=== PATIENT | female | born 1955 | race Caucasian/White ===

== ENCOUNTER 2018-07-28 19:02 | Inpatient (IN) | payer OTHER ==
[~2018-07-28] VITALS: Ht 170.2 cm; Wt 65.1 kg
[2018-07-28] MEDS ORDERED: ASPIRIN 81 MG TAB PO STA (19:08)
[2018-07-28] MEDS ORDERED: ONDANSETRON 4 MG INJ IV STA (19:08)
[2018-07-28] MEDS ORDERED: SOD CHLORIDE 0.9% 1,000 ML IV STA (19:08)
[2018-07-28] MEDS ORDERED: morphine 2 MG INJ IV STA (19:08)
[2018-07-28] MEDS ORDERED: ONDANSETRON 4 MG INJ IV PRN (21:30)
[2018-07-28] MEDS ORDERED: ACETAMINOPHEN 325 MG TAB PO PRN (21:30)
--- NOTE | 2018-07-28 21:59 | ERD ---
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 The patient indicated that 2 hours prior to arrival she developed a sudden onset of chest pressure. She stated was a pressure-like sensation. She stated the chest pain has been persistent.. She states the pain began to radiate to her left arm. She felt nauseous and had one episode of nonbloody nonbilious emesis. When EMS arrived they indicated the patient had mild diaphoresis. They obtained an EKG tracing that showed a run of PVCs. They administered 162 mg of aspirin and 3 sprays of nitroglycerin with no improvement of the patient's symptoms. She has no history of coronary artery disease. She does not smoke tobacco. She states she is never had cardiac issues in the past. She has no shortness of breath. ROS All systems reviewed and are negative except as per history of present illness. Allergies Allergies: Coded Allergies: No Known Drug Allergies (Verified Allergy, Unknown, 07/28/18) PMhx/Soc Medical and Surgical Hx: pt denies Medical Hx, pt denies Surgical Hx History of Surgery: No Hx Neurological Disorder: No Hx Respiratory Disorders: No Hx Cardiac Disorders: No Hx Psychiatric Problems: No Hx Miscellaneous Medical Probl: Yes (HTN ON ANF FOR A MONTH NO MEDS. PRESCRIPTION YET) Hx Alcohol Use: No Hx Substance Use: No Hx Tobacco Use: No Smoking Status: Never smoker Physical Exam Vitals Vital Signs Date Temp Pulse Resp B/P (MAP) Pulse Ox O2 O2 Flow FiO2 Time Delivery Rate 07/28/18 Nasal 19:14 Cannula 07/28/18 98.0 78 19 124/81 100 Room Air 19:07 (95) 07/28/18 98.0 80 19 125/80 100 19:07 (95) Physical Exam Constitutional:Well-developed. Well-nourished. HEENT:Normocephalic. Atraumatic.Pupils were equal round reactive to light. Moist mucous membranes.No tonsillar exudates. Neck: No nuchal rigidity. No lymphadenopathy. No posterior cervical spine tenderness or step-offs. Respiratory: Not using accessory muscles of respiration.Lungs were clear to auscultation bilaterally. No rhonchi. No rales. No wheezing. Cardiovascular: Regular rate regular rhythm.No murmurs. No rubs were appreciated.S1, S2 normal. Distal pulses are palpable 2+ bilaterally. GI: Abdomen was soft. Nontender. Non Distended. No pulsatile abdominal masses or bruits. No rebound. No guarding. Bowel sounds were present and normal. Muscle skeletal: Full range of motion of both the upper and lower extremities bilaterally.Normal muscle tone.No assymetrical calf tenderness or swelling. Skin: No petechia, no purpura. No lesions on the palms or the soles of the feet. No maculopapular rash. NEURO: Patient was alert, awake, orientated x3.No facial droop. Gait observed and normal with no ataxia.Speech had regular rate and rhythm. No focal neurologi jad deficits. Result Diagram: 07/28/18191507/28/181915 Results 24 hrs Laboratory Tests Test 07/28/18 19:16 White Blood Count 8.3 10^3/ul Red Blood Count 4.19 10^6/ul Hemoglobin 12.1 g/dl Hematocrit 36.6 % Mean Corpuscular Volume 87.4 fl Mean Corpuscular Hemoglobin 28.9 pg Mean Corpuscular Hemoglobin Concent 33.1 g/dl Red Cell Distribution Width 13.0 % Platelet Count 377 10^3/UL Mean Platelet Volume 9.8 fl Immature Granulocytes % 0.200 % Neutrophils % 55.2 % Lymphocytes % 37.8 % Monocytes % 5.7 % Eosinophils % 0.6 % Basophils % 0.5 % Nucleated Red Blood Cells % 0.0 /100WBC Immature Granulocytes # 0.020 10^3/ul Neutrophils # 4.6 10^3/ul Lymphocytes # 3.1 10^3/ul Monocytes # 0.5 10^3/ul Eosinophils # 0.1 10^3/ul Basophils # 0.0 10^3/ul Nucleated Red Blood Cells # 0.0 10^3/ul Prothrombin Time 11.7 Sec Prothrombin Time Ratio 0.9 INR International Normalized Ratio 0.85 Activated Partial Thromboplast Time 26.4 Sec Sodium Level 143 mmol/L Potassium Level 3.8 mmol/L Chloride Level 104 mmol/L Carbon Dioxide Level 30 mmol/L Anion Gap 9 Blood Urea Nitrogen 17 mg/dl Creatinine 0.62 mg/dl Est Glomerular Filtrat Rate mL/min > 60 mL/min Glucose Level 120 mg/dl Calcium Level 9.4 mg/dl Total Bilirubin 0.4 mg/dl Direct Bilirubin 0.00 mg/dl Indirect Bilirubin 0.4 mg/dl Aspartate Amino Transf (AST/SGOT) 273 IU/L Alanine Aminotransferase (ALT/SGPT) 150 IU/L Alkaline Phosphatase 145 IU/L Creatine Kinase 41 IU/L Creatine Kinase Index 0.7 Creatinine Kinase MB (Mass) 0.29 ng/ml Troponin I < 0.012 ng/ml B-Type Natriuretic Peptide 103 PG/ML Total Protein 7.9 g/dl Albumin 4.4 g/dl Globulin 3.50 g/dl Albumin/Globulin Ratio 1.25 Lipase 198 U/L Current Medications Medications Dose Sig/Marisol Start Time Status Last (Trade) Ordered Route PRN Stop Time Admin Dose Reason Admin Sodium 1,000 ml @ Q1H STAT 07/28/18 DC 07/28/18 Chloride 1,000 mls/hr IV 19:08 07/28/18 19:29 20:07 Aspirin 162 mg ONCE STAT 07/28/18 DC 07/28/18 (Aspirin) PO 19:08 07/28/18 19:36 19:11 Morphine 2 mg ONCE STAT 07/28/18 DC Sulfate IV 19:08 07/28/18 (morphine) 19:11 Ondansetron 4 mg ONCE STAT 07/28/18 DC HCl (Zofran IV 19:08 07/28/18 Inj) 19:11 Ondansetron 4 mg ER BRIDGE 07/28/18 HCl (Zofran PRN IV 21:30 07/29/18 Inj) NAUSEA/VOMITI 21:29 NG 650 mg ER BRIDGE 07/28/18 Acetaminophen PRN PO 21:30 07/29/18 (Tylenol .MILD PAIN 21:29 Tab) 1-3 OR TEMP Procedures/MDM The patient presented to the emergency department with chest pain. My clinical evaluation and workup was to distinguish minor causes of chest pain from acute life threatening conditions such as myocardial infarction, pulmonary embolism, aortic dissection, esophageal rupture, cardiac tamponade. The patient was placed on a monitor technician and continuous pulse oximetry. IV access established by nursing staff. The patient received 162 mg of aspirin in the emergency department was also given intravenous morphine and Zofran which im proved the patient's chest discomfort. The patient had no left leg abnormalities other than transaminitis. The patient had no leukocytosis. The patient's troponin was within normal limits. Chest radiograph showed no pneumonia or pneumothorax. No widened mediastinum. 12 Lead EKG tracing ordered and reviewed by myself showed: Normal sinus rhythm of 76 bpm and no arrhythmia. MA interval normal. QRS duration normal. No ST segment elevation No ST segment depression. No changes consistent with acute ischemia. I did review the EKG strip taken by EMS. There was questionable run of V. tach versus torsades. Therefore I did feel the patient required admission to the hospital for serial twelve-lead EKG tracings and cardiac enzymes as this could likely have been artifact given that she had to repeat EKGs in the ER which were found to be normal sinus rhythm. She will be admitted to the hospitalist Dr. Melendez. She will be admitted for observation. Departure Diagnosis: Primary Impression: Chest pain Chest pain type: unspecified Qualified Codes: R07.9 - Chest pain, unspecified Condition: NIDIA Alonso MD Jul 28, 2018 21:59
[2018-07-29] VITALS (12 sets, daily range): BP systolic 115–150; BP diastolic 59–80; PULSE 2–69; RESP 18–20; Ht 170.2 cm; Wt 65.1 kg
[2018-07-29] MEDS ORDERED: NACL 0.9% 3 ML SYG IV SCH
[2018-07-29] MEDS ORDERED: ACETAMINOPHEN 325 MG TAB PO PRN
[2018-07-29] MEDS ORDERED: ONDANSETRON 4 MG INJ IV PRN
--- NOTE | 2018-07-29 00:11 | HP ---
Date/Time of Note Date/Time of Note DATE: 07/29/18 TIME: 00:04 Assessment/Plan VTE Prophylaxis SCD applied (from Nsg): Yes Pharmacological prophylaxis: NA/contraindicated Pharm contraindication: low risk/ambulating Lines/Catheters IV Catheter Type (from Nrsg): Saline Lock Assessment/Plan Assessment/Plan 62 yo woman no PMH presents with chest pain, initial EKG concerning for Torsades #Abnormal EKG #Chest pain - Very unlikely ACS; as it did not respond to nitro and trops are negative - EKG in the field looks like Torsades de Pont - However lytes are all normal including magnesium - Admit to tele for 24 hours monitoring. - Stress test likely not indicated. DVT: SCDs GI: None Result Diagram: 07/28/18191507/28/181915 HPI/ROS Admit Date/Time Admit Date/Time 29 July 2018 Hx of Present Illness Ms. Cassidy is a 62 yo woman without major PMH who presents with chest pain. She was in her usual state of health until about 16:00 the day of admission, when she developed chest discomfort. Her daughter took her blood pressure and it was elevated to 170/120. Progressively worsening; at 18:00 she complained of pressure-like chest discomfort at lower sternum upper epigastrium. She then had an episode of nonbloody vomiting. EMS was called. Initial EKG in the field is highly concerning for Torsades versus V fib. She got sublingual nitro x3, and aspirin without relief of pain. Her daughter reports the patient has had similar episodes of chest discomfort and hypertension in April 2018 and October 2017 but she did not go to the em ergency room. In the ED she was afebrile, vitals stable. Labs unremarkable. CXR unremarkable. Trop negative. ROS She denies fever, chills, night sweats, anorexia, weight loss, headache, dizziness, vertigo, dysphagia, palpitations, cough, dyspnea, diarrhea, constipation, dysuria, hematuria, flank pain, melena PMH/Family/Social Past Medical History None Medications Current Medications Ondansetron HCl (Zofran Inj) 4 mg ER BRIDGE PRN IV NAUSEA/VOMITING; Start 07/28/18 at 21:30; Stop 07/29/18 at 21:29 Acetaminophen (Tylenol Tab) 650 mg ER BRIDGE PRN PO .MILD PAIN 1-3 OR TEMP; Start 07/28/18 at 21:30; Stop 07/29/18 at 21:29 Coded Allergies: No Known Drug Allergies (Verified Allergy, Unknown, 07/28/18) Past Surgical History Past Surgical Hx: no surgical history Social History Alcohol Use: none Smoking Status: Never smoker Drug Use: none Exam/Review of Systems Vital Signs Vitals Vital Signs Date Temp Pulse Resp B/P (MAP) Pulse Ox O2 O2 Flow FiO2 Time Delivery Rate 07/28/18 66 16 125/77 99 Room Air 22:02 (93) 07/28/18 98.0 19:07 Exam Exam Gen: Well appearing woman in [facility] no acute distress Eyes: PERRL, no icterus HEENT: Moist mucous membranes, clear oropharynx Neck:Supple, no lymphadenopathy Card: Regular rate and rhythm, no murmurs Pulm: Clear to auscultation bilaterally, no wheezing Abd: Soft, nontender, nondistended. Normoactive bowel sounds. No hepatosplenomegaly. Ext: No cyanosis/clubbing/edema, good peripheral pulses. Skin: warm, dry, well perfused. DORETHA PAYTON MD Jul 29, 2018 00:11
[2018-07-29] MEDS: PANTOPRAZOLE (EC) 40 MG TAB PO SCH (06:25)
--- NOTE | 2018-07-29 13:41 | RADRPT ---
Echocardiogram Report Patient Name: REX YUNGPatient ID: [id number] : 1955 (62y 10m)Study Date: 07/29/2018 12:13:33 PM Gender: FAccession #: [id number] Tech: Eladio Kent [facility] Location: [id number] Ref.Physician: PITER VALERO Height(Cm): BSA: Weight(Kg): Quality: AdequateOrder Physician: PITER VALERO Account #: Procedures: Echocardiographic Report: Transthoracic echocardiogram with complete 2D, M-Mode, and doppler examination. Indications: Cardiac Arrhythmia, and Chest Pain. Measurements: 2D/M Mode Doppler Measurement Value Normal Range Measurement Value Normal Range LVIDd 2D 3.7 [ 3.8 - 5.2 ] cm AV Peak Power 1.0 [ 100.0 - 170.0 ] cm/sec LVIDs 2D 2.8 [ 2.2 - 3.5 ] cm AV Peak PG 4.0 [ 2.0 - 9.0 ] mmHg LVPWd 2D 0.9 [ 0.6 - 0.9 ] cm LVOT Peak Power 0.8 [ 70.0 - 110.0 ] cm/sec IVSd 2D 1.2 [ 0.6 - 0.9 ] cm LVOT Peak PG 3.0 [ 2.0 - 6.0 ] mmHg AoR Diam 2D 2.7 [ 2.3 - 3.1 ] cm MV E Peak Power 0.8 [ 60.0 - 130.0 ] cm/sec EDV 2D 57.0 [ 46.0 - 106.0 ] ml MV A Peak Power 0.6 [ 100.0 - 120.0 ] cm/sec ESV 2D 30.3 [ 14.0 - 42.0 ] ml MV E/A 1.2 [ 0.8 - 1.5 ] ratio EF 2D 46.8 [ 54.0 - 74.0 ] percent MV Decel Time 232 [ 104 - 258 ] msec LA Dimen 2D 2.9 [ 2.7 - 3.8 ] cm Lat E` Power 0.1 [ 10.0 - 15.0 ] cm/sec Lateral E/E` 7.3 [ 1.0 - 2.0 ] ratio MV E/A 1.2 [ 0.8 - 1.5 ] ratio TR Peak Power 2.0 [ 100.0 - 280.0 ] cm/sec TR Peak PG 16.0 mmHg RVSP 26.0 [ 10.0 - 36.0 ] mmHg RA Pressure 10.0 mmHg Findings: Left Ventricle: Normal left ventricular systolic function. Normal left ventricular cavity size. Mild concentric left ventricular hypertrophy. Ejection fraction is visually estimated at 65 %. Tissue Doppler/Mitral Doppler indices are within normal limits. Right Ventricle: Normal right ventricular size. Normal right ventricular systolic function. Left Atrium: The left atrium is normal in size. Right Atrium: The right atrium is normal in size. Mitral Valve: Normal appearance and function of the mitral valve with trace physiologic regurgitation. Aortic Valve: Normal appearance of the aortic valve. No significant aortic stenosis or insufficiency. Tricuspid Valve: Normal appearance and function of the tricuspid valve with trace physiologic regurgitation. Normal right ventricular systolic pressure. Pulmonic Valve: Normal pulmonic valve appearance. Pericardium: Normal pericardium with no significant pericardial effusion. Aorta: Normal aortic root. IVC: Normal size and normal respiratory collapse consistent with normal right atrial pressure. Conclusions: Normal left ventricular systolic function. Normal left ventricular cavity size. Mild concentric left ventricular hypertrophy. Ejection fraction is visually estimated at 65 %. Tissue Doppler/Mitral Doppler indices are within normal limits. Normal appearance and function of the mitral valve with trace physiologic regurgitation. Normal appearance of the aortic valve. No significant aortic stenosis or insufficiency. Normal appearance and function of the tricuspid valve with trace physiologic regurgitation. Normal right ventricular systolic pressure. Electronically Signed By: Yoav Thomas 2018-07-29 13:41:13 PDT
--- NOTE | 2018-07-29 15:17 | CONS ---
Assessment/Plan Assessment/Plan Hospital Course (Demo Recall) Chest pain: Appears to be atypical as resolved with normal EKG and normal wall motion on the echo transient HTN? resolved now elevated LFT? etiology. work up as per IM ANEMIA: defer to IM ? Arrhythmia torsade per medic report but currently no significant arrhythmia seen on telemetry: Currently appears to be in sinus rhythm with normal QT interval and normal magnesium level rec Patient blood pressure currently remained stable off of any medication. We will continue to monitor. I will order a CT coronary angiogram to rule out significant obstructive coronary artery disease GI work-up as per internal medicine Thank you for his referral. We will continue to follow him with you PAXTON POLANCO MD [facility] Consultation Date/Type/Reason Admit Date/Time 29 July 2018 Date of Consultation: Jul 29, 2018 Type of Consult Cardiology Reason for Consultation CHEST PAIN , possible arrhythmia Requesting Provider: PITER VALERO MD Date/Time of Note DATE: 07/29/18 TIME: 15:10 Hx of Present Illness Interventional cardiology consultation note Chief complaint: High blood pressure Reason for consult: chest pain, possible arrhythmia History of present illness: Thank you for this referral. History was obtained from the patient from discussion with the physician staff review of the old chart This is a pleasant 62-year-old [place] female with no past cardiac history who presents emergency room with complaint. Patient states to me that she came in because her blood pressure was too high. On further questioning she also said that her blood pressure went up she was having some chest discomfort on the left side which is completely resolved now. 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 Patient denies any history of exertional chest pain or pressure pressure. He denies any nausea vomiting abdominal pain but LFTs has been elevated as well Allergies: No known drug allergies Medications At Home none Family history: No reported history of early coronary artery disease Social history: Non-smoker Past medical history: None Review of system: Patient denies all others except for above-mentioned Past Medical History Medications Current Medications Ondansetron HCl (Zofran Inj) 4 mg ER BRIDGE PRN IV NAUSEA/VOMITING; Start 07/28/18 at 21:30; Stop 07/29/18 at 21:29 Acetaminophen (Tylenol Tab) 650 mg ER BRIDGE PRN PO .MILD PAIN 1-3 OR TEMP; Start 07/28/18 at 21:30; Stop 07/29/18 at 21:29 IV Flush (NS 3 ml) 3 ml PER PROTOCOL IV ; Start 07/29/18 at 00:00 Ondansetron HCl (Zofran Inj) 4 mg Q6H PRN IV NAUSEA/VOMITING; Start 07/29/18 at 00:00 Acetaminophen (Tylenol Tab) 650 mg Q6H PRN PO .PAIN 1-3 OR TEMP; Start 07/29/18 at 00:00 Pantoprazole (Protonix Tab) 40 mg DAILY@06 PO Last administered on 07/29/18at 06:25; Admin Dose 40 MG; Start 07/29/18 at 06:00 Allergies: Coded Allergies: No Known Drug Allergies (Verified Allergy, Unknown, 07/28/18) Past Surgical History Past Surgical Hx: no surgical history Social History Alcohol Use: none Smoking Status: Never smoker Drug Use: none Exam/Review of Systems Vital Signs Vitals Vital Signs Date Temp Pulse Resp B/P (MAP) Pulse Ox O2 O2 Flow FiO2 Time Delivery Rate 07/29/18 59 12:01 07/29/18 98.1 19 120/70 93 11:19 (87) 07/29/18 Room Air 02:10 Intake and Output 07/28/18 07/28/18 07/29/18 1515:00 23:00 07:00 IntakeIntake Total 250 ml BalanceBalance 250 ml Exam Exam General: no acute distress HEENT: NC/AT. pupils are equal. round. NECK: NO JVD. no stridor. CV: RRR. systolic murmur; no gallop or rubs. PULM: no wheezing or rhonchi. GI: SOFT, NT, ND, no rebound or guarding Extremity: trace B/L LE edema. no clubbing. neuro: awake and alert, OX3. Psych: calm and pleasant rectal: deferred EKG was personally reviewed which were normal sinus rhythm normal ECG Echocardiogram was personally reviewed which shows: Normal left ventricular systolic function. Normal left ventricular cavity size. Mild concentric left ventricular hypertrophy. Ejection fraction is visually estimated at 65 %. Tissue Doppler/Mitral Doppler indices are within normal limits. Normal appearance and function of the mitral valve with trace physiologic regurgitation. Normal appearance of the aortic valve. No significant aortic stenosis or insufficiency. Normal appearance and function of the tricuspid valve with trace physiologic regurgitation. Normal right ventricular systolic pressure. Labs Result Diagram: 07/29/18 0625 07/29/18 0624 Results 24hrs Laboratory Tests Test 07/28/18 19:16 07/29/18 00:40 07/29/18 06:24 07/29/18 06:25 White Blood Count 8.3 5.9 # Red Blood Count 4.19 L 3.87 L Hemoglobin 12.1 10.9 L Hematocrit 36.6 L 34.7 L Mean Corpuscular Volume 87.4 89.7 Mean Corpuscular 28.9 L 28.2 L Hemoglobin Mean Corpuscular 33.1 31.4 L Hemoglobin Concent Red Cell Distribution 13.0 13.2 Width Platelet Count 377 352 Mean Platelet Volume 9.8 9.7 Immature Granulocytes % 0.200 0.200 Neutrophils % 55.2 36.4 L Lymphocytes % 37.8 53.7 H Monocytes % 5.7 8.0 Eosinophils % 0.6 1.2 Basophils % 0.5 0.5 Nucleated Red Blood 0.0 0.0 Cells % Immature Granulocytes # 0.020 0.010 Neutrophils # 4.6 2.1 Lymphocytes # 3.1 H 3.2 H Monocytes # 0.5 0.5 Eosinophils # 0.1 0.1 Basophils # 0.0 0.0 Nucleated Red Blood 0.0 0.0 Cells # Prothrombin Time 11.7 L Prothrombin Time Ratio 0.9 INR International 0.85 Normalized Ratio Activated 26.4 Partial Thromboplast Time Sodium Level 143 142 Potassium Level 3.8 4.4 Chloride Level 104 109 Carbon Dioxide Level 30 27 Anion Gap 9 6 Blood Urea Nitrogen 17 18 Creatinine 0.62 0.74 Est Glomerular Filtrat > 60 > 60 Rate mL/min Glucose Level 120 95 Calcium Level 9.4 8.8 Phosphorus Level 3.8 3.8 Magnesium Level 2.3 2.3 Total Bilirubin 0.4 0.3 Direct Bilirubin 0.00 0.00 Indirect Bilirubin 0.4 0.3 Aspartate Amino 273 H 202 H Transf (AST/SGOT) Alanine 150 H 247 H Aminotransferase (ALT/SG PT) Alkaline Phosphatase 145 H 118 Creatine Kinase 41 30 28 Creatine Kinase Index 0.7 0.7 0.8 Creatinine Kinase MB 0.29 < 0.22 < 0.22 (Mass) Troponin I < 0.012 < 0.012 < 0.012 B-Type Natriuretic 103 Peptide Total Protein 7.9 6.0 #L Albumin 4.4 3.5 Globulin 3.50 H 2.50 Albumin/Globulin Ratio 1.25 1.40 Lipase 198 Hemoglobin A1c 5.6 Medications Medications Current Medications Ondansetron HCl (Zofran Inj) 4 mg ER BRIDGE PRN IV NAUSEA/VOMITING; Start 07/28/18 at 21:30; Stop 07/29/18 at 21:29 Acetaminophen (Tylenol Tab) 650 mg ER BRIDGE PRN PO .MILD PAIN 1-3 OR TEMP; Start 07/28/18 at 21:30; Stop 07/29/18 at 21:29 IV Flush (NS 3 ml) 3 ml PER PROTOCOL IV ; Start 07/29/18 at 00:00 Ondansetron HCl (Zofran Inj) 4 mg Q6H PRN IV NAUSEA/VOMITING; Start 07/29/18 at 00:00 Acetaminophen (Tylenol Tab) 650 mg Q6H PRN PO .PAIN 1-3 OR TEMP; Start 07/29/18 at 00:00 Pantoprazole (Protonix Tab) 40 mg DAILY@06 PO Last administered on 07/29/18at 06:25; Admin Dose 40 MG; Start 07/29/18 at 06:00 PAXTON POLANCO MD Jul 29, 2018 15:17
--- NOTE | 2018-07-29 15:23 | PN ---
Date/Time of Note Date/Time of Note DATE: 07/29/18 TIME: 15:22 Assessment/Plan VTE Prophylaxis Risk score (from Ns)>0 risk: 2 SCD applied (from Ns): Yes Pharmacological prophylaxis: heparin Lines/Catheters IV Catheter Type (from Nrsg): Saline Lock Urinary Cath still in place: No Assessment/Plan Hospital Course 62 yo female without significant PMH presents with atypical chest pain - Dr Thomas to review abnormal EKG - ACS excluded with troponins. TTE w normal cardiac function Transamintiis: - Unclear etiology. will check US and hepatitis serologies Result Diagram: 07/29/1825 07/29/18 0624 Results 24hrs Laboratory Tests Test 07/28/18 19:16 07/29/18 00:40 07/29/18 06:24 07/29/18 06:25 White Blood Count 8.3 5.9 # Red Blood Count 4.19 L 3.87 L Hemoglobin 12.1 10.9 L Hematocrit 36.6 L 34.7 L Mean Corpuscular Volume 87.4 89.7 Mean Corpuscular 28.9 L 28.2 L Hemoglobin Mean Corpuscular 33.1 31.4 L Hemoglobin Concent Red Cell Distribution 13.0 13.2 Width Platelet Count 377 352 Mean Platelet Volume 9.8 9.7 Immature Granulocytes % 0.200 0.200 Neutrophils % 55.2 36.4 L Lymphocytes % 37.8 53.7 H Monocytes % 5.7 8.0 Eosinophils % 0.6 1.2 Basophils % 0.5 0.5 Nucleated Red Blood 0.0 0.0 Cells % Immature Granulocytes # 0.020 0.010 Neutrophils # 4.6 2.1 Lymphocytes # 3.1 H 3.2 H Monocytes # 0.5 0.5 Eosinophils # 0.1 0.1 Basophils # 0.0 0.0 Nucleated Red Blood 0.0 0.0 Cells # Prothrombin Time 11.7 L Prothrombin Time Ratio 0.9 INR International 0.85 Normalized Ratio Activated 26.4 Partial Thromboplast Time Sodium Level 143 142 Potassium Level 3.8 4.4 Chloride Level 104 109 Carbon Dioxide Level 30 27 Anion Gap 9 6 Blood Urea Nitrogen 17 18 Creatinine 0.62 0.74 Est Glomerular Filtrat > 60 > 60 Rate mL/min Glucose Level 120 95 Calcium Level 9.4 8.8 Phosphorus Level 3.8 3.8 Magnesium Level 2.3 2.3 Total Bilirubin 0.4 0.3 Direct Bilirubin 0.00 0.00 Indirect Bilirubin 0.4 0.3 Aspartate Amino 273 H 202 H Transf (AST/SGOT) Alanine 150 H 247 H Aminotransferase (ALT/SG PT) Alkaline Phosphatase 145 H 118 Creatine Kinase 41 30 28 Creatine Kinase Index 0.7 0.7 0.8 Creatinine Kinase MB 0.29 < 0.22 < 0.22 (Mass) Troponin I < 0.012 < 0.012 < 0.012 B-Type Natriuretic 103 Peptide Total Protein 7.9 6.0 #L Albumin 4.4 3.5 Globulin 3.50 H 2.50 Albumin/Globulin Ratio 1.25 1.40 Lipase 198 Hemoglobin A1c 5.6 Subjective 24 Hr Interval Summary Free Text/Dictation Chest symptoms resolved Patient under a lot of stress, feels may be related to chest symptoms no angina Exam/Review of Systems Exam Vitals Vital Signs Date Temp Pulse Resp B/P (MAP) Pulse Ox O2 O2 Flow FiO2 Time Delivery Rate 07/29/18 59 12:01 07/29/18 98.1 19 120/70 93 11:19 (87) 07/29/18 Room Air 02:10 Intake and Output 07/28/18 07/28/18 07/29/18 1515:00 23:00 07:00 IntakeIntake Total 250 ml BalanceBalance 250 ml Constitutional: alert, oriented, well developed Psych: no complaints, nl mood/affect Head: normocephalic, atraumatic Eyes: nl conjunctiva, EOMI, nl lids, nl sclera, PERRL ENMT: nl external ears & nose, nl lips & teeth, nl nasal mucosa & septum Neck: supple, non-tender Respiratory: clear to auscultation, normal air movement Cardiovascular: regular rate and rhythm, nl pulses Gastrointestinal: soft, nl liver, spleen, non-tender Musculoskeletal: nl extremities to inspection, nl gait and stance Extremities: normal pulses Neurological: MILITARY ANALYST II-XII intact, nl mental status, nl speech, nl strength Skin: nl turgor; No rash or lesions Lymph: nl lymph nodes Results Results 24hrs Laboratory Tests Test 07/28/18 19:16 07/29/18 00:40 07/29/18 06:24 07/29/18 06:25 White Blood Count 8.3 5.9 # Red Blood Count 4.19 L 3.87 L Hemoglobin 12.1 10.9 L Hematocrit 36.6 L 34.7 L Mean Corpuscular Volume 87.4 89.7 Mean Corpuscular 28.9 L 28.2 L Hemoglobin Mean Corpuscular 33.1 31.4 L Hemoglobin Concent Red Cell Distribution 13.0 13.2 Width Platelet Count 377 352 Mean Platelet Volume 9.8 9.7 Immature Granulocytes % 0.200 0.200 Neutrophils % 55.2 36.4 L Lymphocytes % 37.8 53.7 H Monocytes % 5.7 8.0 Eosinophils % 0.6 1.2 Basophils % 0.5 0.5 Nucleated Red Blood 0.0 0.0 Cells % Immature Granulocytes # 0.020 0.010 Neutrophils # 4.6 2.1 Lymphocytes # 3.1 H 3.2 H Monocytes # 0.5 0.5 Eosinophils # 0.1 0.1 Basophils # 0.0 0.0 Nucleated Red Blood 0.0 0.0 Cells # Prothrombin Time 11.7 L Prothrombin Time Ratio 0.9 INR International 0.85 Normalized Ratio Activated 26.4 Partial Thromboplast Time Sodium Level 143 142 Potassium Level 3.8 4.4 Chloride Level 104 109 Carbon Dioxide Level 30 27 Anion Gap 9 6 Blood Urea Nitrogen 17 18 Creatinine 0.62 0.74 Est Glomerular Filtrat > 60 > 60 Rate mL/min Glucose Level 120 95 Calcium Level 9.4 8.8 Phosphorus Level 3.8 3.8 Magnesium Level 2.3 2.3 Total Bilirubin 0.4 0.3 Direct Bilirubin 0.00 0.00 Indirect Bilirubin 0.4 0.3 Aspartate Amino 273 H 202 H Transf (AST/SGOT) Alanine 150 H 247 H Aminotransferase (ALT/SG PT) Alkaline Phosphatase 145 H 118 Creatine Kinase 41 30 28 Creatine Kinase Index 0.7 0.7 0.8 Creatinine Kinase MB 0.29 < 0.22 < 0.22 (Mass) Troponin I < 0.012 < 0.012 < 0.012 B-Type Natriuretic 103 Peptide Total Protein 7.9 6.0 #L Albumin 4.4 3.5 Globulin 3.50 H 2.50 Albumin/Globulin Ratio 1.25 1.40 Lipase 198 Hemoglobin A1c 5.6 Medications Medication Current Medications IV Flush (NS 3 ml) 3 ml PER PROTOCOL IV ; Start 07/29/18 at 00:00 Ondansetron HCl (Zofran Inj) 4 mg Q6H PRN IV NAUSEA/VOMITING; Start 07/29/18 at 00:00 Acetaminophen (Tylenol Tab) 650 mg Q6H PRN PO .PAIN 1-3 OR TEMP; Start 07/29/18 at 00:00 Pantoprazole (Protonix Tab) 40 mg DAILY@06 PO Last administered on 07/29/18at 06:25; Admin Dose 40 MG; Start 07/29/18 at 06:00 PITER VALERO MD Jul 29, 2018 15:23
--- NOTE | 2018-07-29 15:42 | QN ---
Documentation Comment As Physician Advisor I have reviewed the chart and have determined that as of today, this patient continues to receive medically necessary care required for the diagnosis and treatment of illness or injury. There has been no unreasonable delay in the rendering of medically necessary services, and this medically necessary care requires a length of stay expected to be greater than two midnights. Additional information gained during the stay now suggests this patient should have been classified as an inpatient at the time of admission, and I will change the status to inpatient to reflect that medical judgment. Besides the notes from the medical providers, the following information was used in this determination: Serious ventricular arrhythmia from paramedics with abnormal EKG. Need for further workup including CT angiogram and possible interventional cardiology procedure. Unexplained transaminitis. Please call me at [phone] with questions. RAUL REAGAN MD Jul 29, 2018 15:42
[2018-07-30] VITALS (8 sets, daily range): BP systolic 122–150; BP diastolic 58–83; PULSE 58–74; RESP 19–20
[2018-07-30] MEDS: PANTOPRAZOLE (EC) 40 MG TAB PO SCH (06:00)
--- NOTE | 2018-07-30 08:30 | CONS ---
Consult Date/Type/Reason Admit Date/Time Jul 29, 2018 at 15:38 Initial Consult Date 07/29/18 Type of Consultation: cv Requesting Provider: PITER VALERO MD Date/Time of Note DATE: 07/30/18 TIME: 08:28 Subjective Cardiology follow-up progress note S: Discussed with staff and telemetry was reviewed. Patient has remained in sinus rhythm with no significant arrhythmia overnight predominantly bradycardic with otherwise no arrhythmias noted. Patient with no chest pain or pressure no palpitation no abdominal pain no nausea vomiting O: General: no acute distress HEENT: NC/AT. pupils are equal. round. NECK: NO JVD. no stridor. CV: RRR. systolic murmur; no gallop or rubs. PULM: no wheezing or rhonchi. GI: SOFT, NT, ND, no rebound or guarding Extremity: trace B/L LE edema. no clubbing. neuro: awake and alert, OX3. Psych: calm and pleasant rectal: deferred EKG was personally reviewed which were normal sinus rhythm normal ECG Echocardiogram was personally reviewed which shows: Normal left ventricular systolic function. Normal left ventricular cavity size. Mild concentric left ventricular hypertrophy. Ejection fraction is visually estimated at 65 %. Tissue Doppler/Mitral Doppler indices are within normal limits. Normal appearance and function of the mitral valve with trace physiologic regurgitation. Normal appearance of the aortic valve. No significant aortic stenosis or insufficiency. Normal appearance and function of the tricuspid valve with trace physiologic regurgitation. Normal right ventricular systolic pressure. Objective Vitals Vital Signs Date Temp Pulse Resp B/P (MAP) Pulse Ox O2 O2 Flow FiO2 Time Delivery Rate 07/30/18 58 08:08 07/30/18 97.8 20 125/73 98 Room Air 07:19 (90) Intake and Output 07/29/18 07/29/18 07/30/18 1515:00 23:00 07:00 IntakeIntake Total 1000 ml 500 ml BalanceBalance 1000 ml 500 ml Results/Medications Result Diagram: 07/30/18 0607/30/18 0622 Results 24 hrs Laboratory Tests Test 07/29/18 16:58 07/30/18 06:22 07/30/18 06:29 Sodium Level 142 142 Potassium Level 4.3 4.1 Chloride Level 108 108 Carbon Dioxide Level 28 27 Anion Gap 6 7 Blood Urea Nitrogen 14 13 Creatinine 0.71 0.71 Est Glomerular Filtrat Rate mL/min > 60 > 60 Glucose Level 93 95 Calcium Level 9.3 9.2 Total Bilirubin 0.5 0.5 Direct Bilirubin 0.00 0.00 Indirect Bilirubin 0.5 0.5 Aspartate Amino Transf (AST/SGOT) 118 H 74 H Alanine Aminotransferase (ALT/SGPT) 210 H 159 H Alkaline Phosphatase 120 113 Total Protein 7.2 # 7.1 Albumin 3.9 3.9 Globulin 3.30 H 3.20 Albumin/Globulin Ratio 1.18 1.21 White Blood Count 5.6 Red Blood Count 4.04 L Hemoglobin 11.6 L Hematocrit 36.2 L Mean Corpuscular Volume 89.6 Mean Corpuscular Hemoglobin 28.7 L Mean Corpuscular Hemoglobin Concent 32.0 Red Cell Distribution Width 13.1 Platelet Count 362 Mean Platelet Volume 9.8 Immature Granulocytes % 0.200 Neutrophils % 37.5 L Lymphocytes % 52.7 H Monocytes % 7.5 Eosinophils % 1.4 Basophils % 0.7 Nucleated Red Blood Cells % 0.0 Immature Granulocytes # 0.010 Neutrophils # 2.1 Lymphocytes # 2.9 Monocytes # 0.4 Eosinophils # 0.1 Basophils # 0.0 Nucleated Red Blood Cells # 0.0 Magnesium Level 2.2 Bedside Glucose 94 Medications Current Medications IV Flush (NS 3 ml) 3 ml PER PROTOCOL IV ; Start 07/29/18 at 00:00 Ondansetron HCl (Zofran Inj) 4 mg Q6H PRN IV NAUSEA/VOMITING; Start 07/29/18 at 00:00 Acetaminophen (Tylenol Tab) 650 mg Q6H PRN PO .PAIN 1-3 OR TEMP; Start 07/29/18 at 00:00 Pantoprazole (Protonix Tab) 40 mg DAILY@06 PO Last administered on 07/29/18at 06:25; Admin Dose 40 MG; Start 07/29/18 at 06:00 Assessment/Plan Hospital Course (Demo Recall) Chest pain: Appears to be atypical as resolved with normal EKG and normal wall motion on the echo transient HTN? resolved now elevated LFT? etiology. work up as per IM ANEMIA: defer to IM ? Reported arrhythmia torsade student counsellor report but currently no significant arrhythmia seen on telemetry: Currently appears to be in sinus rhythm with normal QT interval and normal magnesium level rec Patient blood pressure currently remained stable off of any medication. We will continue to monitor. CT coronary angiogram today to rule out significant obstructive coronary artery disease GI work-up as per internal medicine Thank you for his referral. We will continue to follow him with you PAXTON POLANCO MD [facility] PAXTON POLANCO MD Jul 30, 2018 08:30
--- NOTE | 2018-07-30 15:28 | DS ---
Date/Time of Note Date/Time of Note DATE: 07/30/18 TIME: 15:26 Discharge Summary Admission/Discharge Info Admit Date/Time Jul 29, 2018 at 15:38 Discharge Date/Time Discharge Diagnosis Gall stones Patient Condition: Stable Hospital Course 62 yo female without significant PMH presents with atypical chest pain/abdominal pain Patient was eating at a bbq when she developed pain in epigastrium vs chest. Came to ED. Here she was ruled out for ACS with negative biomarkers and EKG. Her labs were notable for a transaminitis. RUQ US revealed gall stones. She had no fevers or RUQ symptosm to suggest acute cholecystitis. Hepatitis serologies were negative. I suspect her symptoms are from gall stone disease. I advised her to make an appointment with her general surgeon and discuss cholecystectomy if symptoms recur. She was also advised to have LFTs monitored by her primary care physician in the coming weeks. A CT-coronaries is pending at time of discharge. Primary Care Provider [facility] Pending Labs Laboratory Tests Test 07/29/18 16:58 07/30/18 06:22 07/30/18 06:29 Sodium Level 142 142 mmol/L (135-144) mmol/L (135-144) Potassium Level 4.3 4.1 mmol/L (3.5-5.1) mmol/L (3.5-5.1) Chloride Level 108 mmol/L (97-110) 108 mmol/L (97-110) Carbon Dioxide 28 mmol/L (21-31) 27 mmol/L (21-31) Level Anion Gap 6 (5-13) 7 (5-13) Blood Urea 14 mg/dl (7-20) 13 mg/dl (7-20) Nitrogen Creatinine 0.71 0.71 mg/dl (0.44-1.00) mg/dl (0.44-1.00) Est Glomerular > 60 mL/min (>60) > 60 mL/min (>60) Filtrat Rate mL/min Glucose Level 93 mg/dl (70-220) 95 mg/dl (70-220) Calcium Level 9.3 9.2 mg/dl (8.4-10.2) mg/dl (8.4-10.2) Total Bilirubin 0.5 mg/dl (0.2-1.3) 0.5 mg/dl (0.2-1.3) Direct Bilirubin 0.00 0.00 mg/dl (0.00-0.20) mg/dl (0.00-0.20) Indirect Bilirubin 0.5 mg/dl (0-1.1) 0.5 mg/dl (0-1.1) Aspartate Amino 118 IU/L (15-46) 74 IU/L (15-46) Transf (AST/SGOT) Alanine 210 IU/L (13-69) 159 IU/L (13-69) Aminotransferase (A LT/SGPT) Alkaline 120 IU/L (42-121) 113 IU/L (42-121) Phosphatase Total Protein 7.2 g/dl (6.1-8.1) 7.1 g/dl (6.1-8.1) Albumin 3.9 g/dl (3.3-4.9) 3.9 g/dl (3.3-4.9) Globulin 3.30 g/dl (1.3-3.2) 3.20 g/dl (1.3-3.2) Albumin/Globulin 1.18 1.21 Ratio White Blood Count 5.6 10^3/ul (4.8-10.8) Red Blood Count 4.04 10^6/ul (4.20-5.40) Hemoglobin 11.6 g/dl (12.0-16.0) Hematocrit 36.2 % (37.0-47.0) Mean Corpuscular 89.6 Volume fl (82.0-101.0) Mean Corpuscular 28.7 pg (29.0-33.0) Hemoglobin Mean Corpuscular 32.0 Hemoglobin Concent g/dl (32.0-37.0) Red Cell 13.1 % (11.5-14.5) Distribution Width Platelet Count 362 10^3/UL (140-415) Mean Platelet 9.8 fl (7.4-10.4) Volume Immature 0.200 Granulocytes % % (0.001-0.429) Neutrophils % 37.5 % (39.0-77.0) Lymphocytes % 52.7 % (15.0-51.0) Monocytes % 7.5 % (0.0-11.0) Eosinophils % 1.4 % (0.0-7.0) Basophils % 0.7 % (0.0-2.0) Nucleated Red Blood 0.0 Cells % /100WBC (0.0-0.0) Immature 0.010 Granulocytes # 10^3/ul (0.0-0.031) Neutrophils # 2.1 10^3/ul (1.6-7.5) Lymphocytes # 2.9 10^3/ul (0.8-2.9) Monocytes # 0.4 10^3/ul (0.3-0.9) Eosinophils # 0.1 10^3/ul (0.0-0.5) Basophils # 0.0 10^3/ul (0.0-0.1) Nucleated Red Blood 0.0 Cells # 10^3/ul (0.0-0.0) Magnesium Level 2.2 mg/dl (1.7-2.5) Bedside Glucose 94 mg/dL (70-220) PITER VALERO MD Jul 30, 2018 15:28
--- NOTE | 2018-07-30 15:32 | PDOCDIS ---
Discharge Instructions DIAGNOSIS Discharge Diagnosis Gall stones CONDITION [id number] Patient Condition: [id number] Stable FOLLOW UP/APPOINTMENTS Follow-up Plan Make an appointment with your primary care doctor in the coming weeks to have your liver enzymes checked to make sure they have normalized If you continue to have problems with gall bladder pain you can make an appointment with a general surgeon to discuss having your gall bladder removed. An excellent surgeon you can contact is Dr Britton Lu, office number is PITER VALERO MD Jul 30, 2018 15:32
[2018-07-30] MEDS ORDERED: SOD CHLORIDE 0.9% 100 ML ONE (15:37)
[2018-07-30] MEDS ORDERED: IOHEXOL 100 ML ONE (15:37)
[2018-07-30] MEDS ORDERED: METOPROLOL 5 MG INJ ONE (16:08)
[2018-07-30] MEDS ORDERED: NITROGLYCERIN AEROSOL (4.9 GM) ONE (16:08)
== END 2018-07-30 18:36 | disposition home or self-care (01) | DRG 446 ==
LOC: E/R 19:02 → TEL 21:14 → SUATTDRO 23:45 → EDBEDREQSVC 07-29 00:47 → OBSVTOIN 07-29 15:38
PROVIDERS: ADMIT Internal Medicine; ATTEND Internal Medicine
DX: K80.00 Calculus of gallbladder with acute cholecystitis without obstruction (principal); R07.89 Other chest pain; R10.11 Right upper quadrant pain
CPT/HCPCS: 71045; 75574; 76705; 80053; 82550; 82553; 82962; 83036; 83690; 83735; 83880; 84100; 84484; 85025; 85610; 85730; 86704; 86709; 86803; 87340; 93005; 93306; G0378; J7030; Q9967